=== PATIENT | female | born 1960 | race Caucasian/White ===

== ENCOUNTER → 2019-07-02 | Outpatient (CLI) | payer BC, OTHER ==
--- NOTE | 2019-07-12 11:36 | SLEEPCENT ---
DATE OF PROCEDURE: 07/02/2019 ORDERING PHYSICIAN: INTERPRETATION: Nocturnal sonography was performed for the titration of bilevel therapy in this patient with severe obstructive sleep apnea. Recently been found have severe pulmonary hypertension. A total of 8 hours and 52 minutes of data was reviewed with 477 minutes of sleep identified. Sleep latency was prolonged and 45.5 minutes. Rapid eye movement (REM) latency was 196 minutes. No slow-wave sleep was observed. Sleep efficiency was 90.4%. EKG showed normal sinus rhythm with an average heart rate of 66 beats per minute. Speeding and slowing was noted surrounding some respiratory events. There also unifocal preventricular contractions (PVCs). No epileptiform discharge observed. The patient had been placed on bilevel at 20/16 via her own large nasal pillows and the lights were dimmed. Bilevel initially done at 12/16 was creased to 22/17 which appeared optimal. On this pressure her apnea/hypopneic index (AHI) was 0 and her and respiratory arousal index FRAZIER was 0.7. Periodic limb movement index was elevated at 53.7. REM sleep was seen on this pressure with a reasonably good waveform. No supine sleep was seen during the entire re-titration. IMPRESSION: 1. Obstructive sleep apnea, severe, reasonably palliated on bilevel with inspiratory positive airway pressure (IPAP) of 22 and an expiratory positive airway pressure (EPAP) of 17. The weakness of the study is that no supine sleep was seen. RECOMMENDATIONS: Recommend continuation of bilevel therapy at the above pressure via a large nasal pillows or mask of her preference. Clinical correlation may be necessary to ensure eradication of symptoms.
== END ==
LOC: M SLEEP 18:49
PROVIDERS: ATTEND Internal Medicine Pulmonary Disease
DX: G47.33 Obstructive sleep apnea (adult) (pediatric) (principal)